=== PATIENT | female | born 1945 | race Caucasian/White ===

== ENCOUNTER 2017-04-15 08:26 | Emergency (ER) | payer MEDICARE, OTHER ==
[~2017-04-15] VITALS: Ht 154.9 cm; Wt 85.5 kg
[~2017-04-15 08:26] MED LIST: ALPR1TAB10 PO; ATEN25TA PO; ATOR40TA PO; ATOR40TA78 PO; BUPR150T6 PO; FLUO20CA19 PO; FLUT9.9S NAS; FURO-92 PO; LEVO125T PO; LEVO175T2 PO; LISI-468 PO; LISI40TA PO; METH-356 PO; OMEP-110 PO
[2017-04-15 08:28] VITALS: BP 146/69
[2017-04-15] MEDS ORDERED: L.E.T SOLUTION TP ONE ×3 (09:29→09:34)
[2017-04-15] MEDS ORDERED: CEFAZOLIN 1,000 MG ONE (09:29)
[2017-04-15] MEDS ORDERED: CEFAZOLIN 1,000 MG IM ONE (09:30)
[2017-04-15] MEDS ORDERED: OMEP20TA62 PO (10:33)
== END 2017-04-15 10:39 | disposition home or self-care (01) ==
LOC: ED 10:30
DX: S80.811A Abrasion, right lower leg, initial encounter (principal); L03.115 Cellulitis of right lower limb; E78.5 Hyperlipidemia, unspecified; E78.00 Pure hypercholesterolemia, unspecified; I10 Essential (primary) hypertension; Z88.2 Allergy status to sulfonamides; Z79.899 Other long term (current) drug therapy; W19.XXXA Unspecified fall, initial encounter; Y93.89 Activity, other specified; Y92.89 Other specified places as the place of occurrence of the external cause; Y99.8 Other external cause status
CPT/HCPCS: 93971; 96372; 99284; J0690

== ENCOUNTER → 2017-11-28 | Outpatient (CLI) | payer MEDICARE, OTHER ==
[~2017-11-28] MED LIST changes: +ASPI-496 PO; +FURO40TA6 PO; +LISI-170 PO; +METO25TA35 PO; +MULT-658 PO; +OMEP20TA62 PO; +POLY17PO5 PO; +PREG75CA PO
[2017-11-28 09:58] LABS: BASOPHILS # (AUTO) 0.03 x10^3/uL (0-0.1); BASOPHILS % (AUTO) 0 % (0-1); EOSINOPHILS # (AUTO) 0.15 x10^3/uL (0-0.4); EOSINOPHILS % (AUTO) 2 % (1-7); LYMPHOCYTES # (AUTO) 2.84 x10^3/uL (1-3.4); LYMPHOCYTES % (AUTO) 32 % (22-44); MD NO; MEAN CORPUSCULAR HEMOGLOBIN 28.4 pg (27.0-34.8); MEAN CORPUSCULAR VOLUME 86.1 fL (80-100); MEAN PLATELET VOLUME 10.7 fL (7.4-10.4); MONOCYTES # (AUTO) 0.99 x10^3/uL (0.2-0.8); MONOCYTES % (AUTO) 11 % (2-9); NEUTROPHILS # (AUTO) 4.95 x10^3/uL (1.8-6.8); NEUTROPHILS % (AUTO) 55 % (42-75); PLATELET COUNT 231 x10^3/uL (130-400); RED BLOOD COUNT 4.67 x10^6/uL (3.82-5.3); RED CELL DISTRIBUTION WIDTH 16.5 % (9.6-15.2)
[2017-11-28 10:07] LABS: ALBUMIN 3.4 g/dL (3.4-5.0); ANION GAP 7 mmol/L (5-15); CALCIUM 9.5 mg/dL (8.5-10.1); CHLORIDE 102 mmol/L (98-107)
[2017-11-28 10:08] LABS: MICROSCOPIC AUTO
[2017-11-28 10:12] LABS: ALANINE AMINOTRANSFERASE 28 U/L (12-78); ALKALINE PHOSPHATASE 98 U/L (45-117); BILIRUBIN,TOTAL 0.5 mg/dL (0.2-1.0); CREATININE 2.31 mg/dL (0.55-1.02); TOTAL PROTEIN 7.6 g/dL (6.4-8.2)
== END | disposition home or self-care (01) ==
LOC: STAR 08:13
PROVIDERS: ATTEND Urology
DX: Z01.818 Encounter for other preprocedural examination (principal); R94.31 Abnormal electrocardiogram [ECG] [EKG]; C67.9 Malignant neoplasm of bladder, unspecified
CPT/HCPCS: 36415; 80053; 81001; 85025; 87086; 93005

== ENCOUNTER 2017-12-11 05:28 | Day surgery (SDC) | payer MEDICARE, OTHER ==
[~2017-12-11] VITALS: Ht 157.5 cm; Wt 92.4 kg
[2017-12-11] MEDS ORDERED: LACTATED RINGERS 1,000 ML IV SCH (06:10)
[2017-12-11 06:11] VITALS: BP 121/55
[2017-12-11] MEDS ORDERED: LIDOCAINE 1%, 2ML SQ PRN (06:30)
[2017-12-11] MEDS ORDERED: LIDOCAINE-MPF 2% ,5ML ONE (07:05)
[2017-12-11] MEDS ORDERED: PROPOFOL 10 MG/ML, 20ML ONE (07:06)
[2017-12-11] MEDS ORDERED: LIDOCAINE GEL 2%, 5ML ONE (07:09)
[2017-12-11] MEDS ORDERED: MITOMYCIN 40 MG, WATER FOR INJECTION,STERILE 20 ML in SYRINGE 1 EA INTVESIC ONE (07:30)
[2017-12-11] MEDS ORDERED: CIPROFLOXACIN 400MG/200ML PMX ONE (07:41)
[2017-12-11] MEDS ORDERED: EPHEDRINE 50 MG/ML, 1ML ONE (07:59)
[2017-12-11] MEDS ORDERED: ONDANSETRON 2MG/ML, 2ML IVPush PRN (08:00)
[2017-12-11] MEDS ORDERED: OXYcodone 5 MG/5 ML ORAL.SOL UDC PO PRN (08:00)
[2017-12-11] MEDS ORDERED: MEPERIDINE/PF 25MG/0.5ML IVPush PRN (08:00)
[2017-12-11] MEDS ORDERED: HYDROcodone/APAP 7.5-325MG/15ML UDC PO PRN (08:00)
[2017-12-11] MEDS ORDERED: FENTANYL PF 100 MCG/2ML IV PRN (08:00)
[2017-12-11] MEDS ORDERED: morphine SULFATE 10 MG/ML, 1ML IV PRN (08:00)
[2017-12-11] MEDS ORDERED: ONDANSETRON 2MG/ML, 2ML ONE (08:04)
[2017-12-11] MEDS ORDERED: DEXAMETHASONE 4 MG/ML, 1ML ONE ×2 (08:04)
[2017-12-11] MEDS ORDERED: METOPROLOL TARTRATE 25 MG TABLET PO SCH (09:00)
[2017-12-11] MEDS ORDERED: PREGABALIN 75 MG CAPSULE PO SCH (09:00)
[2017-12-11] MEDS ORDERED: METHADONE 10 MG TABLET PO SCH (09:00)
[2017-12-11] MEDS ORDERED: FUROSEMIDE 40 MG TABLET PO SCH (09:00)
[2017-12-11] MEDS ORDERED: POLYETHYLENE GLYCOL 17 GM PACKET PO PRN (09:00)
[2017-12-11] MEDS ORDERED: MULTIVITAMIN 1 TABLET PO SCH (09:00)
[2017-12-11] MEDS ORDERED: LISINOPRIL 20 MG TABLET PO SCH (09:00)
[2017-12-11] MEDS ORDERED: ATORVASTATIN 40 MG TABLET PO SCH (21:00)
[2017-12-12] MEDS ORDERED: LEVOTHYROXINE 175 MCG TABLET PO SCH (06:00)
== END 2017-12-11 11:30 ==
LOC: OUT 05:28
PROVIDERS: ATTEND Urology
DX: C67.9 Malignant neoplasm of bladder, unspecified (principal); J44.9 Chronic obstructive pulmonary disease, unspecified; F32.9 Major depressive disorder, single episode, unspecified; I10 Essential (primary) hypertension; E03.9 Hypothyroidism, unspecified; F17.210 Nicotine dependence, cigarettes, uncomplicated; Z79.82 Long term (current) use of aspirin; Z88.1 Allergy status to other antibiotic agents; Z87.39 Personal history of other diseases of the musculoskeletal system and connective tissue
CPT/HCPCS: 52234; 88307; J0744; J1100; J2405; J2704; J3490; J7120; J9280

== ENCOUNTER 2018-03-12 12:12 | Inpatient (IN) | payer MEDICARE ==
[2018-03-10 10:42] LABS: BASOPHILS # (AUTO) 0.03 x10^3/uL (0-0.1); BASOPHILS % (AUTO) 0 % (0-1); EOSINOPHILS % (AUTO) 1 % (1-7); LYMPHOCYTES # (AUTO) 1.88 x10^3/uL (1-3.4); LYMPHOCYTES % (AUTO) 25 % (22-44); MD NO; MEAN CORPUSCULAR HEMOGLOBIN 27.8 pg (27.0-34.8); MEAN CORPUSCULAR HGB CONC 32.9 g/dL (32.4-35.8); MEAN CORPUSCULAR VOLUME 84.4 fL (80-100); MEAN PLATELET VOLUME 10.7 fL (7.4-10.4); MONOCYTES # (AUTO) 0.64 x10^3/uL (0.2-0.8); MONOCYTES % (AUTO) 8 % (2-9); NEUTROPHILS % (AUTO) 65 % (42-75); PLATELET COUNT 247 x10^3/uL (130-400); RED BLOOD COUNT 4.56 x10^6/uL (3.82-5.3); RED CELL DISTRIBUTION WIDTH 17.1 % (9.6-15.2)
[2018-03-10 10:52] LABS: MICROSCOPIC INDICATED
[2018-03-10 10:55] LABS: ALANINE AMINOTRANSFERASE 25 U/L (12-78); ALBUMIN 3.7 g/dL (3.4-5.0); ANION GAP 6 mmol/L (5-15); CALCIUM 9.3 mg/dL (8.5-10.1); CHLORIDE 98 mmol/L (98-107)
[2018-03-10 10:57] LABS: ALKALINE PHOSPHATASE 110 U/L (45-117); BILIRUBIN,TOTAL 0.4 mg/dL (0.2-1.0); TOTAL PROTEIN 7.9 g/dL (6.4-8.2)
[~2018-03-12] VITALS: Ht 157.5 cm; Wt 98.7 kg
[~2018-03-12 12:12] MED LIST changes: +METO5TAB5 PO
[2018-03-12] MEDS ORDERED: SODIUM CHLORIDE 0.9% 1,000 ML IV SCH (13:06)
[2018-03-12 13:12] VITALS: BP 108/49
[2018-03-12] MEDS ORDERED: ONDANSETRON ODT 8 MG PO ONE (13:30)
[2018-03-12] MEDS ORDERED: DIAZEPAM 5 MG TABLET PO ONE (13:30)
[2018-03-12] MEDS ORDERED: ACETAMINOPHEN 500 MG TABLET PO ONE (13:30)
[2018-03-12] MEDS ORDERED: GABAPENTIN 300 MG CAPSULE PO ONE (13:30)
[2018-03-12] MEDS ORDERED: MIDAZOLAM 1 MG/ML, 2ML ONE (14:46)
[2018-03-12] MEDS ORDERED: FENTANYL PF 100 MCG/2ML ONE (14:46)
[2018-03-12] MEDS ORDERED: DEXAMETHASONE 4 MG/ML, 5ML ONE (16:56)
[2018-03-12] MEDS ORDERED: PROPOFOL 10 MG/ML, 20ML ONE (16:56)
[2018-03-12] MEDS ORDERED: GLYCOPYRROLATE 0.2MG/1ML, 5ML ONE (16:56)
[2018-03-12] MEDS ORDERED: LIDOCAINE-MPF 2% ,5ML ONE (16:56)
[2018-03-12] MEDS ORDERED: CIPROFLOXACIN/PMX 400MG/200ML 200 ML IVPB ONE (17:57)
[2018-03-12] MEDS ORDERED: OPIUM/BELLADONNA SUPP.RECT 16.2-30 MG PR PRN (18:00)
[2018-03-12] MEDS ORDERED: POLYETHYLENE GLYCOL 17 GM PACKET PO PRN (18:00)
[2018-03-12] MEDS ORDERED: METHADONE 10 MG TABLET PO SCH (18:00)
[2018-03-12] MEDS ORDERED: HYDROcodone/APAP 5/325 TABLET PO PRN (18:00)
[2018-03-12] MEDS ORDERED: OXYcodone 5 MG/5 ML ORAL.SOL UDC PO PRN (18:30)
[2018-03-12] MEDS ORDERED: MORPHINE SULFATE 4 MG/ML, 1ML IVPush PRN (18:30)
[2018-03-12] MEDS ORDERED: FENTANYL PF 100 MCG/2ML IV PRN (18:30)
[2018-03-12] MEDS ORDERED: PROMETHAZINE 25 MG/ML, 1ML IV PRN (18:30)
[2018-03-12] MEDS ORDERED: EPHEDRINE 50 MG/ML, 1ML IM PRN (18:30)
[2018-03-12] MEDS: D5%-LACTATED RINGERS 1,000 ML IV SCH (20:34)
[2018-03-12] MEDS: METHADONE 10 MG TABLET PO SCH (20:45)
[2018-03-12] MEDS: PREGABALIN 75 MG CAPSULE PO SCH (20:45)
[2018-03-12] MEDS: ATORVASTATIN 40 MG TABLET PO SCH (20:45)
[2018-03-12] MEDS: FUROSEMIDE 40 MG TABLET PO SCH (20:46)
[2018-03-12 21:12] VITALS: BP 120/52
[2018-03-12 23:40] VITALS: BP 97/44
[2018-03-13] MEDS: D5%-LACTATED RINGERS 1,000 ML IV SCH ×3 (00:56→21:52)
[2018-03-13 03:25] VITALS: BP 99/54
[2018-03-13] MEDS: CIPROFLOXACIN/PMX 400MG/200ML 200 ML IVPB SCH ×2 (05:18→18:41)
[2018-03-13] MEDS ORDERED: LEVOTHYROXINE 100 MCG TABLET ONE (05:51)
[2018-03-13] MEDS ORDERED: LEVOTHYROXINE 75 MCG TABLET ONE (05:51)
[2018-03-13] MEDS: METHADONE 10 MG TABLET PO SCH ×5 (05:54→21:00)
[2018-03-13] MEDS: LEVOTHYROXINE 175 MCG TABLET PO SCH (05:54)
[2018-03-13] MEDS: FUROSEMIDE 40 MG TABLET PO SCH ×2 (07:57→21:07)
[2018-03-13] MEDS: PREGABALIN 75 MG CAPSULE PO SCH ×3 (07:57→21:07)
[2018-03-13] MEDS: LISINOPRIL 20 MG TABLET PO SCH (07:57)
[2018-03-13] MEDS: METOPROLOL SUCCINATE 25 MG TAB.ER.24H PO SCH (07:57)
[2018-03-13] MEDS: METOLAZONE 5 MG TABLET PO SCH (07:57)
[2018-03-13] MEDS: MULTIVITAMIN 1 TABLET PO SCH (07:57)
[2018-03-13 08:16] VITALS: BP 107/56
[2018-03-13 12:55] VITALS: BP 104/46
[2018-03-13 19:21] VITALS: BP 99/45
[2018-03-13] MEDS: ATORVASTATIN 40 MG TABLET PO SCH (21:07)
[2018-03-14 02:25] VITALS: BP 107/50
[2018-03-14] MEDS: CIPROFLOXACIN/PMX 400MG/200ML 200 ML IVPB SCH ×2 (05:20→17:04)
[2018-03-14] MEDS ORDERED: LEVOTHYROXINE 75 MCG TABLET ONE (05:49)
[2018-03-14] MEDS ORDERED: LEVOTHYROXINE 100 MCG TABLET ONE (05:49)
[2018-03-14] MEDS: METHADONE 10 MG TABLET PO SCH ×5 (05:50→20:47)
[2018-03-14] MEDS: LEVOTHYROXINE 175 MCG TABLET PO SCH (05:50)
[2018-03-14 08:34] VITALS: BP 107/39
[2018-03-14] MEDS: METOPROLOL SUCCINATE 25 MG TAB.ER.24H PO SCH (09:00)
[2018-03-14] MEDS: METOLAZONE 5 MG TABLET PO SCH (09:00)
[2018-03-14] MEDS: LISINOPRIL 20 MG TABLET PO SCH (09:00)
[2018-03-14] MEDS: MULTIVITAMIN 1 TABLET PO SCH (09:25)
[2018-03-14] MEDS: PREGABALIN 75 MG CAPSULE PO SCH ×3 (09:25→20:48)
[2018-03-14] MEDS: FUROSEMIDE 40 MG TABLET PO SCH ×2 (09:25→20:48)
[2018-03-14] MEDS: D5%-LACTATED RINGERS 1,000 ML IV SCH ×2 (12:49→21:48)
[2018-03-14 14:59] VITALS: BP 91/50
[2018-03-14 19:31] VITALS: BP 95/45
[2018-03-14] MEDS: ATORVASTATIN 40 MG TABLET PO SCH (20:48)
[2018-03-15 02:23] VITALS: BP 102/50
[2018-03-15] MEDS: CIPROFLOXACIN/PMX 400MG/200ML 200 ML IVPB SCH (05:12)
[2018-03-15 05:18] LABS: BASOPHILS # (AUTO) 0.03 x10^3/uL (0-0.1); BASOPHILS % (AUTO) 0 % (0-1); EOSINOPHILS # (AUTO) 0.21 x10^3/uL (0-0.4); EOSINOPHILS % (AUTO) 3 % (1-7); LYMPHOCYTES # (AUTO) 2.16 x10^3/uL (1-3.4); LYMPHOCYTES % (AUTO) 26 % (22-44); MD NO; MEAN CORPUSCULAR HEMOGLOBIN 27.5 pg (27.0-34.8); MEAN CORPUSCULAR HGB CONC 32.5 g/dL (32.4-35.8); MEAN CORPUSCULAR VOLUME 84.5 fL (80-100); MEAN PLATELET VOLUME 10.5 fL (7.4-10.4); MONOCYTES % (AUTO) 11 % (2-9); NEUTROPHILS # (AUTO) 4.88 x10^3/uL (1.8-6.8); NEUTROPHILS % (AUTO) 60 % (42-75); PLATELET COUNT 241 x10^3/uL (130-400); RED BLOOD COUNT 4.36 x10^6/uL (3.82-5.3); RED CELL DISTRIBUTION WIDTH 17.8 % (9.6-15.2)
[2018-03-15] MEDS ORDERED: LEVOTHYROXINE 75 MCG TABLET ONE (05:50)
[2018-03-15] MEDS ORDERED: LEVOTHYROXINE 100 MCG TABLET ONE (05:50)
[2018-03-15] MEDS: LEVOTHYROXINE 175 MCG TABLET PO SCH (05:52)
[2018-03-15] MEDS: METHADONE 10 MG TABLET PO SCH ×2 (05:53→11:09)
[2018-03-15 08:00] VITALS: BP 93/51
[2018-03-15] MEDS: METOPROLOL SUCCINATE 25 MG TAB.ER.24H PO SCH (09:00)
[2018-03-15] MEDS: D5%-LACTATED RINGERS 1,000 ML IV SCH (09:00)
[2018-03-15] MEDS: METOLAZONE 5 MG TABLET PO SCH (09:00)
[2018-03-15] MEDS: LISINOPRIL 20 MG TABLET PO SCH (09:00)
[2018-03-15] MEDS: MULTIVITAMIN 1 TABLET PO SCH (11:09)
[2018-03-15] MEDS: FUROSEMIDE 40 MG TABLET PO SCH (11:09)
[2018-03-15] MEDS: PREGABALIN 75 MG CAPSULE PO SCH (11:09)
[2018-03-15] MEDS ORDERED: OXYB10TA PO (13:42)
[2018-03-15] MEDS ORDERED: DOCU-131 PO (13:42)
== END 2018-03-15 14:00 | disposition home or self-care (01) | DRG 670 ==
LOC: OUT 12:12 → OBSVTOIN 17:56 → ORIP 17:56 → 4NOR 19:22
PROVIDERS: ADMIT Urology; ATTEND Urology
PROC: 0TBB8ZZ Excision of Bladder, Via Natural or Artificial Opening Endoscopic (ICD-10-PCS; principal; 2018-03-12 14:30)
DX: C67.9 Malignant neoplasm of bladder, unspecified (principal); R31.0 Gross hematuria; E03.9 Hypothyroidism, unspecified; I10 Essential (primary) hypertension; Z88.2 Allergy status to sulfonamides
CPT/HCPCS: 36415; 80053; 81001; 85025; 87086; 88307; 93005; J0744; J1100; J2250; J2704; J3010; J3490; Q0162; J7030; J7121

== ENCOUNTER → 2018-04-09 | Outpatient (CLI) | payer MEDICARE ==
[~2018-04-09] MED LIST changes: +DOCU-131 PO; +OXYB10TA PO
== END | disposition home or self-care (01) ==
LOC: PETCFH 14:05
PROVIDERS: ATTEND Specialist
DX: Z02.9 Encounter for administrative examinations, unspecified (principal)

== ENCOUNTER → 2018-04-10 | Outpatient (CLI) | payer MEDICARE | END | disposition home or self-care (01) | LOC: PETCFH 12:29 | PROVIDERS: ATTEND Specialist | DX: C67.9 Malignant neoplasm of bladder, unspecified (principal) | CPT/HCPCS: 78815; A9552 ==

== ENCOUNTER → 2018-08-19 | Outpatient (CLI) | payer MEDICARE ==
[2018-08-19 10:04] LABS: BASOPHILS # (AUTO) 0.04 x10^3/uL (0-0.1); BASOPHILS % (AUTO) 1 % (0-1); EOSINOPHILS # (AUTO) 0.14 x10^3/uL (0-0.4); EOSINOPHILS % (AUTO) 2 % (1-7); LYMPHOCYTES # (AUTO) 1.82 x10^3/uL (1-3.4); LYMPHOCYTES % (AUTO) 28 % (22-44); MD NO; MEAN CORPUSCULAR HEMOGLOBIN 25.8 pg (27.0-34.8); MEAN CORPUSCULAR HGB CONC 32.3 g/dL (32.4-35.8); MEAN CORPUSCULAR VOLUME 79.9 fL (80-100); MEAN PLATELET VOLUME 9.9 fL (7.4-10.4); MONOCYTES # (AUTO) 0.72 x10^3/uL (0.2-0.8); MONOCYTES % (AUTO) 11 % (2-9); NEUTROPHILS # (AUTO) 3.78 x10^3/uL (1.8-6.8); NEUTROPHILS % (AUTO) 58 % (42-75); PLATELET COUNT 238 x10^3/uL (130-400); RED BLOOD COUNT 4.93 x10^6/uL (3.82-5.3); RED CELL DISTRIBUTION WIDTH 20.2 % (9.6-15.2)
[2018-08-19 10:18] LABS: ALANINE AMINOTRANSFERASE 19 U/L (12-78); ALBUMIN 3.4 g/dL (3.4-5.0); CALCIUM 8.8 mg/dL (8.5-10.1); CHLORIDE 100 mmol/L (98-107); CREATININE 1.24 mg/dL (0.55-1.02)
[2018-08-19 10:20] LABS: ALKALINE PHOSPHATASE 123 U/L (45-117); BILIRUBIN,TOTAL 0.4 mg/dL (0.2-1.0); TOTAL PROTEIN 7.4 g/dL (6.4-8.2)
[2018-08-19 10:25] LABS: ANION GAP 5 mmol/L (5-15)
[2018-08-19 10:27] LABS: MICROSCOPIC AUTO
== END | disposition home or self-care (01) ==
LOC: STAR 08:43
PROVIDERS: ATTEND Urology
DX: Z01.818 Encounter for other preprocedural examination (principal); C67.9 Malignant neoplasm of bladder, unspecified; I10 Essential (primary) hypertension
CPT/HCPCS: 36415; 71045; 80053; 81001; 85025; 87086; 93005

== ENCOUNTER 2018-08-27 08:16 | Inpatient (IN) | payer MEDICARE ==
[2018-08-19 13:13] VITALS: BP 132/64
[~2018-08-27] VITALS: Ht 157.5 cm; Wt 104.1 kg
[2018-08-27] MEDS ORDERED: LACTATED RINGERS 1,000 ML IV SCH (08:54)
[2018-08-27] MEDS ORDERED: GABAPENTIN 300 MG CAPSULE PO ONE (09:00)
[2018-08-27] MEDS ORDERED: ACETAMINOPHEN 500 MG TABLET PO ONE (09:00)
[2018-08-27] MEDS ORDERED: LIDOCAINE-MPF 1%, 2ML INFIL ONE (09:00)
[2018-08-27] MEDS ORDERED: POLY17PO5 PO (09:24)
[2018-08-27] MEDS ORDERED: ASPI-496 PO (09:24)
[2018-08-27] MEDS ORDERED: BUME1TAB21 PO (09:24)
[2018-08-27] MEDS ORDERED: FLUO20CA19 PO (09:24)
[2018-08-27] MEDS ORDERED: POTASSIUM 20 MEQ PO (09:24)
[2018-08-27] MEDS ORDERED: MONT10TA6 PO (09:24)
[2018-08-27] MEDS ORDERED: DULO60CA7 PO (09:24)
[2018-08-27] MEDS ORDERED: FENTANYL PF 100 MCG/2ML ONE (10:12)
[2018-08-27] MEDS ORDERED: ONDANSETRON 2MG/ML, 2ML ONE (10:28)
[2018-08-27] MEDS ORDERED: SUCCINYLCHOLINE 20 MG/ML, 10ML ONE (10:28)
[2018-08-27] MEDS ORDERED: ROCURONIUM 10 MG/ML,10ML ONE (10:28)
[2018-08-27] MEDS ORDERED: PROPOFOL 10 MG/ML, 20ML ONE (10:28)
[2018-08-27] MEDS ORDERED: DEXAMETHASONE 4 MG/ML, 1ML ONE (10:28)
[2018-08-27] MEDS ORDERED: PROCHLORPERAZINE 5 MG/ML, 2ML IV PRN (11:00)
[2018-08-27] MEDS ORDERED: MEPERIDINE/PF 25MG/0.5ML IVPush PRN (11:00)
[2018-08-27] MEDS ORDERED: HYDROmorphone 1 MG/ML, 1ML IV PRN (11:00)
[2018-08-27] MEDS ORDERED: DIPHENHYDRAMINE 50 MG/ML, 1ML IVPush PRN (11:00)
[2018-08-27] MEDS ORDERED: OXYcodone 5 MG/5 ML ORAL.SOL UDC PO PRN (11:00)
[2018-08-27] MEDS ORDERED: FENTANYL PF 100 MCG/2ML IV PRN (11:00)
[2018-08-27] MEDS ORDERED: LORazepam 2 MG/ML, 1ML IVPush PRN (11:00)
[2018-08-27] MEDS ORDERED: TEMAZEPAM 15 MG CAPSULE PO PRN (11:30)
[2018-08-27] MEDS ORDERED: HYDROcodone/APAP 5/325 TABLET PO PRN (11:30)
[2018-08-27] MEDS ORDERED: OPIUM/BELLADONNA SUPP.RECT 16.2-30 MG PR PRN (11:30)
[2018-08-27] MEDS ORDERED: morphine SULFATE 10 MG/ML, 1ML IV PRN (11:30)
[2018-08-27] MEDS ORDERED: ONDANSETRON 2MG/ML, 2ML IV PRN (11:30)
[2018-08-27] MEDS ORDERED: FLUTICASONE NASAL SPRAY 16GM NAS PRN (13:00)
[2018-08-27] MEDS ORDERED: POLYETHYLENE GLYCOL 17 GM PACKET PO PRN (13:00)
[2018-08-27] MEDS ORDERED: METHADONE 10 MG TABLET PO SCH (14:00)
[2018-08-27] MEDS: METHADONE 10 MG TABLET PO PRN ×3 (14:54→21:35)
[2018-08-27] MEDS: D5%-LACTATED RINGERS 1,000 ML IV SCH (14:56)
[2018-08-27] MEDS: CIPROFLOXACIN/PMX 400MG/200ML 200 ML IVPB SCH (14:56)
[2018-08-27] MEDS: PREGABALIN 75 MG CAPSULE PO SCH ×2 (16:00→21:35)
[2018-08-27 18:49] VITALS: BP 108/62
[2018-08-27 19:30] VITALS: BP 107/67
[2018-08-27] MEDS ORDERED: ATORVASTATIN 40 MG TABLET PO SCH (21:00)
[2018-08-27] MEDS ORDERED: MONTELUKAST 10 MG TABLET PO SCH (21:00)
[2018-08-27] MEDS: BUMETANIDE 1 MG TABLET PO SCH (21:34)
[2018-08-28 00:32] VITALS: BP 104/64
[2018-08-28] MEDS: D5%-LACTATED RINGERS 1,000 ML IV SCH (00:46)
[2018-08-28] MEDS: CIPROFLOXACIN/PMX 400MG/200ML 200 ML IVPB SCH ×2 (03:02→15:00)
[2018-08-28] MEDS ORDERED: LEVOTHYROXINE 175 MCG TABLET PO SCH (06:00)
[2018-08-28 07:02] VITALS: BP 97/62
[2018-08-28] MEDS ORDERED: METOLAZONE 5 MG TABLET PO SCH (07:30)
[2018-08-28] MEDS: BUMETANIDE 1 MG TABLET PO SCH (08:12)
[2018-08-28] MEDS: PREGABALIN 75 MG CAPSULE PO SCH (08:12)
[2018-08-28] MEDS: METHADONE 10 MG TABLET PO PRN ×3 (08:12→12:32)
[2018-08-28] MEDS ORDERED: POTASSIUM CHLORIDE 20 MEQ TAB.ER.PRT PO SCH (09:00)
[2018-08-28] MEDS ORDERED: DULOXETINE 30 MG CAPSULE.DR PO SCH (09:00)
[2018-08-28] MEDS ORDERED: FLUOXETINE HCL 20 MG CAPSULE PO SCH (09:00)
== END 2018-08-28 15:15 | disposition home or self-care (01) | DRG 670 ==
LOC: OUT 08:16 → ORIP 11:20 → 4NOR 12:22 → DCLOUNGE 08-28 15:00
PROVIDERS: ADMIT Urology; ATTEND Urology
PROC: 0TBB8ZZ Excision of Bladder, Via Natural or Artificial Opening Endoscopic (ICD-10-PCS; principal; 2018-08-27 10:30)
DX: C67.9 Malignant neoplasm of bladder, unspecified (principal); J44.9 Chronic obstructive pulmonary disease, unspecified; M19.90 Unspecified osteoarthritis, unspecified site; F32.9 Major depressive disorder, single episode, unspecified; E03.9 Hypothyroidism, unspecified; I12.9 Hypertensive chronic kidney disease with stage 1 through stage 4 chronic kidney disease, or unspecified chronic kidney disease; N18.9 Chronic kidney disease, unspecified; F17.210 Nicotine dependence, cigarettes, uncomplicated; G89.29 Other chronic pain; M54.9 Dorsalgia, unspecified; E78.49 Other hyperlipidemia; Z80.51 Family history of malignant neoplasm of kidney; Z88.2 Allergy status to sulfonamides; Z80.8 Family history of malignant neoplasm of other organs or systems; Z80.3 Family history of malignant neoplasm of breast; Z90.710 Acquired absence of both cervix and uterus; Z90.49 Acquired absence of other specified parts of digestive tract; Z98.1 Arthrodesis status; Z85.51 Personal history of malignant neoplasm of bladder
CPT/HCPCS: 88307; G0378; J0744; J1100; J2405; J2704; J3010; J0330; J7120; J7121

== ENCOUNTER → 2018-12-01 | Outpatient (CLI) | payer MEDICARE ==
[~2018-12-01] MED LIST changes: +BUME1TAB21 PO; +DULO60CA7 PO; +FURO-93 PO; +IBUP-1222 PO; -METH-356 PO; +METH10TA2 PO; +MONT10TA6 PO; +POTASSIUM 20 MEQ PO
[2018-12-01 09:54] LABS: MICROSCOPIC AUTO
[2018-12-01 09:58] LABS: BASOPHILS # (AUTO) 0.03 x10^3/uL (0-0.1); BASOPHILS % (AUTO) 0 % (0-1); EOSINOPHILS # (AUTO) 0.26 x10^3/uL (0-0.4); EOSINOPHILS % (AUTO) 4 % (1-7); LYMPHOCYTES # (AUTO) 1.41 x10^3/uL (1-3.4); LYMPHOCYTES % (AUTO) 21 % (22-44); MD NO; MEAN CORPUSCULAR HEMOGLOBIN 26.8 pg (27.0-34.8); MEAN CORPUSCULAR HGB CONC 32.1 g/dL (32.4-35.8); MEAN CORPUSCULAR VOLUME 83.3 fL (80-100); MEAN PLATELET VOLUME 9.4 fL (7.4-10.4); MONOCYTES # (AUTO) 0.67 x10^3/uL (0.2-0.8); MONOCYTES % (AUTO) 10 % (2-9); NEUTROPHILS # (AUTO) 4.26 x10^3/uL (1.8-6.8); NEUTROPHILS % (AUTO) 64 % (42-75); PLATELET COUNT 250 x10^3/uL (130-400); RED BLOOD COUNT 4.63 x10^6/uL (3.82-5.3); RED CELL DISTRIBUTION WIDTH 19.8 % (9.6-15.2)
[2018-12-01 10:02] LABS: ALBUMIN 3.1 g/dL (3.4-5.0); ANION GAP 5 mmol/L (5-15); CALCIUM 9.4 mg/dL (8.5-10.1); CHLORIDE 104 mmol/L (98-107)
[2018-12-01 10:04] LABS: ALANINE AMINOTRANSFERASE 16 U/L (12-78); ALKALINE PHOSPHATASE 114 U/L (45-117); BILIRUBIN,TOTAL 0.4 mg/dL (0.2-1.0); CREATININE 1.69 mg/dL (0.55-1.02); TOTAL PROTEIN 7.2 g/dL (6.4-8.2)
== END | disposition home or self-care (01) ==
LOC: STAR 08:19
PROVIDERS: ATTEND Urology
DX: Z01.818 Encounter for other preprocedural examination (principal); I25.2 Old myocardial infarction; C67.9 Malignant neoplasm of bladder, unspecified
CPT/HCPCS: 36415; 80053; 81001; 85025; 87086; 93005

== ENCOUNTER 2018-12-15 04:14 | Emergency (ER) | payer MEDICARE ==
[~2018-12-15] VITALS: Ht 157.5 cm; Wt 95.0 kg
[2018-12-15 04:15] VITALS: BP 159/104
--- NOTE | 2018-12-15 04:40 | NUR ---
DEGROOT CATHETER REMOVED, 30ML FLUIDS REMOVED FROM BALLOON.
== END 2018-12-15 04:56 | disposition home or self-care (01) ==
LOC: ED 04:41
DX: T83.091A Other mechanical complication of indwelling urethral catheter, initial encounter (principal); E78.5 Hyperlipidemia, unspecified; I10 Essential (primary) hypertension; E78.00 Pure hypercholesterolemia, unspecified
CPT/HCPCS: 99281

== ENCOUNTER 2019-01-16 14:16 | Emergency (ER) | payer MEDICARE ==
[~2019-01-16] VITALS: Ht 157.5 cm; Wt 99.0 kg
[2019-01-16 15:10] LABS: BASOPHILS # (AUTO) 0.08 x10^3/uL (0-0.1); BASOPHILS % (AUTO) 1 % (0-1); EOSINOPHILS # (AUTO) 0.18 x10^3/uL (0-0.4); EOSINOPHILS % (AUTO) 2 % (1-7); LYMPHOCYTES # (AUTO) 1.81 x10^3/uL (1-3.4); LYMPHOCYTES % (AUTO) 19 % (22-44); MD NO; MEAN CORPUSCULAR HEMOGLOBIN 26.9 pg (27.0-34.8); MEAN CORPUSCULAR HGB CONC 32.4 g/dL (32.4-35.8); MEAN CORPUSCULAR VOLUME 83.1 fL (80-100); MEAN PLATELET VOLUME 8.2 fL (7.4-10.4); MONOCYTES # (AUTO) 0.68 x10^3/uL (0.2-0.8); MONOCYTES % (AUTO) 7 % (2-9); NEUTROPHILS # (AUTO) 6.92 x10^3/uL (1.8-6.8); NEUTROPHILS % (AUTO) 72 % (42-75); PLATELET COUNT 326 x10^3/uL (130-400); RED BLOOD COUNT 5.12 x10^6/uL (3.82-5.3); RED CELL DISTRIBUTION WIDTH 19.1 % (9.6-15.2)
[2019-01-16 15:22] LABS: ALBUMIN 3.7 g/dL (3.4-5.0); ANION GAP 5 mmol/L (5-15); CALCIUM 9.8 mg/dL (8.5-10.1); CHLORIDE 105 mmol/L (98-107); CREATININE 1.35 mg/dL (0.55-1.02)
--- NOTE | 2019-01-16 15:26 | NUR ---
PT AMBULATED TO ROOM WITH WALKER AND STEADY GAIT. PT STATED THAT SHE HAS ONLY URINATED TWICE TODAY. REPORT DRIBBLING AND BLOOD IN URINE. HX OF BLADDER CANCER. PT IS ALERT, ORIENTED, WITH NAD. PT IS CONNECTED TO THE MONITOR. CALL LIGHT WITHIN REACH.
--- NOTE | 2019-01-16 15:43 | NUR ---
PER MD PLACE DEGROOT. DEGROOT PLACED. CLOUDY URINE WITH BLOOD IN IT DRAINED FROM BLADDER. 1000ML EMPTIED FROM BLADDER. PT IS APPRECIATIVE.
[2019-01-16 16:00] LABS: CULTURE INDICATED? YES; MICROSCOPIC INDICATED
[2019-01-16 16:26] VITALS: BP 108/42
--- NOTE | 2019-01-16 16:26 | NUR ---
PT IS RESTING IN BED WITH EYES CLOSED, RESPIRATIONS EQUAL AND NON LABORED. NAD. PT IS CONNECTED TO THE MONITOR. CALL LIGHT WITHIN REACH.
--- NOTE | 2019-01-16 16:39 | NUR ---
A total of about 1400 ml of urine emptied from the pts soliz.
--- NOTE | 2019-01-16 17:28 | NUR ---
Patient given discharge instructions and they have confirmed that they understand the instructions. Patient ambulatory with walker and steady gait, with .
== END 2019-01-16 17:30 | disposition home or self-care (01) ==
LOC: ED 17:26
DX: N30.01 Acute cystitis with hematuria (principal); I10 Essential (primary) hypertension; E78.00 Pure hypercholesterolemia, unspecified; E78.5 Hyperlipidemia, unspecified; E07.9 Disorder of thyroid, unspecified; N28.9 Disorder of kidney and ureter, unspecified
CPT/HCPCS: 36415; 51702; 80048; 81001; 82040; 85025; 87086; 99284

== ENCOUNTER 2019-03-06 08:29 | Emergency (ER) | payer MEDICARE ==
[~2019-03-06] VITALS: Ht 157.5 cm; Wt 92.0 kg
[~2019-03-06 08:29] MED LIST changes: +ONDA4TAB13 PO
[2019-03-06] MEDS ORDERED: HYDROmorphone 2 MG/ML, 1ML IVPush PRN (09:30)
--- NOTE | 2019-03-06 09:32 | NUR ---
"I'M HAVING SOME LEFT GROIN PAIN. I DON'T KNOW IF IT'S FROM MY CATHETER. IT STARTED AT 0730 THIS MORNING." HX BLADDER CA. 2TWO CAPPED NEPHROSTOMY TUBES IN PLACE WELL DEGROOT DRAINING BLOODY URINE. VITALS STABLE PIV STARTED W/ ULTRASOUND-LABS SENT INCLUDING A SET OF BLOOD CULTURE SAMPLE OF BLOODY URINE FROM URIMETER SENT WELL PROVIDER TO BEDSIDE TO EXPLAIN POC
[2019-03-06] MEDS ORDERED: LISI-420 PO (09:37)
[2019-03-06] MEDS ORDERED: METH10TA3 PO (09:37)
--- NOTE | 2019-03-06 09:38 | NUR ---
brenda thompson completed on methadone 10mg 5 times a day-last dose 8pm 03/05/19 reports she has a lisinopril prescription but was told to stop taking a few months ago Also has not taken any of her medicines today
--- NOTE | 2019-03-06 09:56 | NUR ---
to ct scan
[2019-03-06 10:02] LABS: BASOPHILS # (AUTO) 0.02 x10^3/uL (0-0.1); BASOPHILS % (AUTO) 0 % (0-1); EOSINOPHILS # (AUTO) 0.15 x10^3/uL (0-0.4); EOSINOPHILS % (AUTO) 3 % (1-7); LYMPHOCYTES # (AUTO) 0.92 x10^3/uL (1-3.4); LYMPHOCYTES % (AUTO) 17 % (22-44); MD NO; MEAN CORPUSCULAR HEMOGLOBIN 26.6 pg (27.0-34.8); MEAN CORPUSCULAR HGB CONC 32.5 g/dL (32.4-35.8); MEAN CORPUSCULAR VOLUME 81.9 fL (80-100); MEAN PLATELET VOLUME 9.5 fL (7.4-10.4); MONOCYTES # (AUTO) 0.47 x10^3/uL (0.2-0.8); MONOCYTES % (AUTO) 8 % (2-9); NEUTROPHILS # (AUTO) 4.02 x10^3/uL (1.8-6.8); NEUTROPHILS % (AUTO) 72 % (42-75); PLATELET COUNT 235 x10^3/uL (130-400); RED BLOOD COUNT 4.11 x10^6/uL (3.82-5.3); RED CELL DISTRIBUTION WIDTH 19.4 % (9.6-15.2)
[2019-03-06 10:13] LABS: ANION GAP 4 mmol/L (5-15); CALCIUM 8.9 mg/dL (8.5-10.1); CHLORIDE 111 mmol/L (98-107)
[2019-03-06 10:14] LABS: CREATININE 1.28 mg/dL (0.55-1.02)
[2019-03-06] MEDS ORDERED: HYDROmorphone 2 MG/ML, 1ML ONE (10:14)
--- NOTE | 2019-03-06 10:19 | NUR ---
medicated per emar for continued right groin/flank pain rated at 8/10. vitals updated call avendaño in hand/side rails up at bedside
[2019-03-06 10:21] LABS: MICROSCOPIC INDICATED
[2019-03-06 10:27] LABS: CULTURE INDICATED? YES
--- NOTE | 2019-03-06 10:27 | NUR ---
reports pain already improved to 0/10 placed on 2l d/t narcotic admin
[2019-03-06] MEDS ORDERED: OPIUM/BELLADONNA SUPP.RECT 16.2-30 MG PR ONE (10:41)
[2019-03-06] MEDS ORDERED: SODIUM CHLORIDE FLUSH 10ML SYR IVF ONE (11:00)
--- NOTE | 2019-03-06 12:20 | NUR ---
medicated per emar (narcotic suppository) educated on expected effects and side effects
--- NOTE | 2019-03-06 12:54 | NUR ---
AFTER A PERIOD OF ASSESSMENT POST NARCOTIC SUPPOSITORY ADMIN-PATIENT TOLERATING EDUCATED ON SXS TO WATCH FOR WELL WHAT TO RETURN TO ER FOR (UNCONTROLLED PAIN/URINARY RETENTION/FEVER). OTHERWISE PATIENT TO F/U WITH UROLOGIST ON SATURDAY
[2019-03-06 12:56] VITALS: BP 142/85
== END 2019-03-06 12:58 | disposition home or self-care (01) ==
LOC: ED 09:00
DX: R10.31 Right lower quadrant pain (principal); I10 Essential (primary) hypertension; E78.00 Pure hypercholesterolemia, unspecified; E78.5 Hyperlipidemia, unspecified; F32.9 Major depressive disorder, single episode, unspecified; E07.9 Disorder of thyroid, unspecified
CPT/HCPCS: 36415; 74176; 80048; 81001; 82040; 85025; 87040; 87086; 96374; 99284; J1170

== ENCOUNTER 2019-04-28 10:20 | Inpatient (IN) | payer MEDICARE ==
[~2019-04-28] VITALS: Ht 165.1 cm; Wt 86.1 kg
[~2019-04-28 10:20] MED LIST changes: +LISI-420 PO; +METH10TA3 PO
[2019-04-28] MEDS ORDERED: SODIUM CHLORIDE FLUSH 10ML SYR IVF ONE (11:30)
--- NOTE | 2019-04-28 11:41 | NUR ---
JERKING AND TWITCHING TYPE MOVEMENTS FOR APPROXIMATELY A WEEK. FELL TWICE 4 DAYS AGO. BRUSING OUTSIDE OF RIGHT EYE AND LEFT ARM
--- NOTE | 2019-04-28 11:41 | NUR ---
PT A&OX4 BUT CONFUSED. STATES SHE HAS SHOWN SIGNS OF CONFUSION FOR APPROXIMATELY A WEEK. [facility]
[2019-04-28 12:24] LABS: BASOPHILS # (AUTO) 0.04 x10^3/uL (0-0.1); BASOPHILS % (AUTO) 1 % (0-1); EOSINOPHILS # (AUTO) 0.04 x10^3/uL (0-0.4); EOSINOPHILS % (AUTO) 1 % (1-7); LYMPHOCYTES # (AUTO) 0.89 x10^3/uL (1-3.4); LYMPHOCYTES % (AUTO) 14 % (22-44); MD NO; MEAN CORPUSCULAR HEMOGLOBIN 25.2 pg (27.0-34.8); MEAN CORPUSCULAR HGB CONC 31.5 g/dL (32.4-35.8); MEAN CORPUSCULAR VOLUME 79.8 fL (80-100); MEAN PLATELET VOLUME 8.7 fL (7.4-10.4); MONOCYTES # (AUTO) 0.55 x10^3/uL (0.2-0.8); MONOCYTES % (AUTO) 9 % (2-9); NEUTROPHILS # (AUTO) 4.96 x10^3/uL (1.8-6.8); NEUTROPHILS % (AUTO) 77 % (42-75); PLATELET COUNT 256 x10^3/uL (130-400); RED BLOOD COUNT 3.96 x10^6/uL (3.82-5.3); RED CELL DISTRIBUTION WIDTH 19.3 % (9.6-15.2)
[2019-04-28] MEDS ORDERED: LORazepam 2 MG/ML, 1ML IVPush ONE (12:30)
[2019-04-28 12:35] LABS: ALANINE AMINOTRANSFERASE 15 U/L (12-78); ALBUMIN 2.9 g/dL (3.4-5.0); ANION GAP 11 mmol/L (5-15); CHLORIDE 110 mmol/L (98-107)
[2019-04-28 12:37] LABS: ALKALINE PHOSPHATASE 107 U/L (45-117); BILIRUBIN,TOTAL 0.6 mg/dL (0.2-1.0); TOTAL PROTEIN 7.4 g/dL (6.4-8.2)
[2019-04-28] MEDS ORDERED: CALCIUM CHLORIDE 10%, 10ML SYR IVPush ONE (13:00)
[2019-04-28] MEDS ORDERED: DEXTROSE 50%, 50ML SYRINGE IVPush ONE (13:00)
[2019-04-28] MEDS ORDERED: INSULIN REGULAR 100 UNITS/ML, 3ML VIAL IVPush ONE (13:00)
[2019-04-28] MEDS ORDERED: CALCIUM CHLORIDE 10%, 10ML SYR ONE (13:08)
[2019-04-28] MEDS ORDERED: INSULIN SINGLE DOSE, ER SQ-INSULIN ONE (13:08)
[2019-04-28] MEDS ORDERED: LORazepam 2 MG/ML, 1ML ONE (13:22)
--- NOTE | 2019-04-28 13:32 | NUR ---
GIVEN JUICE AND PEANUT BUTTER FOR 55 BLOOD SUGAR FOLLOWED BY MEDS FOR 6.7 POTASSIUM. ADDITIONALLY MEDICATED FOR JERKING MOVEMENT OF EXTREMETIES WITH ATIVAN. ULTRASOUND AT BEDSIDE. PT AND AWARE OF INTENTION TO ADMIT
--- NOTE | 2019-04-28 13:44 | NUR ---
TASK RN: PT GIVEN POTASSIUM COCKTAIL. PT REPORTS THAT SHE IS OKAY. BG HAS NOW GONE UP AFTER OJ, AND PEANUT BUTTER. PT STARTING TO FALL ASLEEP. CHANGE IN LOC BUT MD NOTIFIED TO BEDSIDE EVAL AND IS OKAY WITH PT CONDITION.
--- NOTE | 2019-04-28 13:49 | NUR ---
TASK RN: AWAITING US COMPLETION. PT REPORT CALLED TO JAILENE ALVARES.
[2019-04-28 14:45] VITALS: BP 124/58
[2019-04-28] MEDS ORDERED: SODIUM POLYSTYRENE SULFONATE ORAL SUSP PO ONE (15:00)
[2019-04-28] MEDS ORDERED: FURO40TA6 PO (15:13)
[2019-04-28] MEDS ORDERED: LIDOCAINE-MPF 1%, 5ML ONE ×2 (15:38)
[2019-04-28 16:41] LABS: CULTURE INDICATED? YES; MICROSCOPIC INDICATED
[2019-04-28 16:41] LABS: ALBUMIN 2.5 g/dL (3.4-5.0); ANION GAP 10 mmol/L (5-15); CALCIUM 9.5 mg/dL (8.5-10.1); CHLORIDE 109 mmol/L (98-107)
[2019-04-28] MEDS: SODIUM BICARB 8.4%,50ML SYR. 150 MEQ in DEXTROSE 5% 1,000 ML IV SCH (16:42)
[2019-04-28 16:49] LABS: CHLORIDE,URINE RANDOM 32 mmol/L; POTASSIUM,URINE RANDOM 38 mmol/L; SODIUM,URINE RANDOM 32 mmol/L
[2019-04-28 17:20] LABS: OSMOLALITY,URINE 294 mOsm/kg (500-850)
[2019-04-28] MEDS ORDERED: HEPARIN 5,000 UNITS/ML, 1ML SQ SCH ×2 (17:30→21:00)
[2019-04-28] MEDS ORDERED: ONDANSETRON ODT 4 MG PO PRN (17:30)
[2019-04-28] MEDS ORDERED: LABETALOL 5MG/ML, 20ML IVPush PRN (17:30)
[2019-04-28] MEDS ORDERED: ONDANSETRON 2MG/ML, 2ML IVPush PRN (17:30)
[2019-04-28] MEDS ORDERED: BISACODYL 10 MG SUPP PR PRN (17:30)
[2019-04-28] MEDS ORDERED: ENALAPRILAT 1.25 MG/ML, 1ML IVPush PRN (17:30)
[2019-04-28] MEDS ORDERED: morphine SULFATE 10 MG/ML, 1ML IVPush PRN (17:30)
[2019-04-28 19:00] VITALS: BP 120/70
[2019-04-28 19:17] LABS: HCT (SEDRATE) 28.6 % (34.6-47.8)
[2019-04-28 19:27] LABS: ANION GAP 7 mmol/L (5-15); CALCIUM 9.3 mg/dL (8.5-10.1); CHLORIDE 110 mmol/L (98-107)
[2019-04-28 19:36] LABS: HEMOGLOBIN A1C 5.1 % (4.2-6.3)
[2019-04-28 19:41] LABS: FREE T4 (FREE THYROXINE) 0.97 ng/dL (0.76-1.46); THYROID STIMULATING HORMONE 0.354 mIU/L (0.358-3.740)
[2019-04-29 00:11] VITALS: BP 118/56
[2019-04-29] MEDS: SODIUM BICARB 8.4%,50ML SYR. 150 MEQ in DEXTROSE 5% 1,000 ML IV SCH ×2 (00:39→08:19)
[2019-04-29 05:33] LABS: ALBUMIN 2.3 g/dL (3.4-5.0); ANION GAP 7 mmol/L (5-15); CALCIUM 8.8 mg/dL (8.5-10.1); CHLORIDE 110 mmol/L (98-107)
[2019-04-29 05:41] LABS: % IRON SATURATION 5 % (20-55); ALANINE AMINOTRANSFERASE 13 U/L (12-78); ALKALINE PHOSPHATASE 85 U/L (45-117); BILIRUBIN,TOTAL 0.6 mg/dL (0.2-1.0); CHOL/HDL RATIO 3.2; CHOLESTEROL, TOTAL 127 mg/dL (140-239); CREATINE KINASE, TOTAL 50 U/L (26-192); CREATININE 8.93 mg/dL (0.55-1.02); HDL CHOL % 31 % (28-40); HDL CHOLESTEROL (DIRECT) 40 mg/dL (40-60); IRON LEVEL 14 mcg/dL (50-170); LDL CHOLESTEROL,CALCULATED 65 mg/dL (54-169); LDL/HDL RATIO 1.6 (0.5-3.0); TOTAL IRON BINDING CAPACITY 261 mcg/dL (250-450); TOTAL PROTEIN 6.1 g/dL (6.4-8.2); TRIGLYCERIDES 109 mg/dL (50-200); VLDL CHOLESTEROL 22 mg/dL (0-25)
[2019-04-29 05:53] LABS: MEAN CORPUSCULAR HGB CONC 32.5 g/dL (32.4-35.8); MEAN PLATELET VOLUME 9.1 fL (7.4-10.4); PLATELET COUNT 248 x10^3/uL (130-400); RED BLOOD COUNT 3.63 x10^6/uL (3.82-5.3); RED CELL DISTRIBUTION WIDTH 19.2 % (9.6-15.2)
[2019-04-29 05:56] LABS: MD YES
[2019-04-29 05:58] LABS: LYMPH#(MANUAL) 1.13 x10^3/uL (1-3.4); LYMPHS% (MANUAL) 23 % (22-44); MONOS#(MANUAL) 0.34 x10^3/uL (0.3-2.7); MONOS% (MANUAL) 7 % (2-9); SEG#(MANUAL) 3.43 x10^3/uL (1.8-6.8); SEGS% (MANUAL) 70 % (42-75)
[2019-04-29 05:59] LABS: <PLATELET ESTIMATE> ADEQUATE; <PLT MORPHOLOGY> NORMAL PLT MORPH; ANISOCYTOSIS 1+; POLYCHROMASIA 1+
[2019-04-29 07:00] VITALS: BP 142/62
[2019-04-29] MEDS ORDERED: PANTOPRAZOLE 40 MG IV IVPush SCH (07:30)
[2019-04-29] MEDS: ERGOCALCIFEROL 50,000 UNIT CAPSULE PO SCH (09:46)
[2019-04-29] MEDS: IRON SUCROSE COMPLEX 100MG/5ML IV SCH (09:47)
[2019-04-29 13:20] VITALS: BP 144/78
[2019-04-29] MEDS ORDERED: SODIUM CHLORIDE 0.45% 1,000 ML IV SCH (13:30)
[2019-04-29] MEDS: SODIUM CHLORIDE 0.45% 1,000 ML IV SCH ×2 (14:00→22:16)
[2019-04-29 18:57] VITALS: BP 120/61
[2019-04-30 01:31] VITALS: BP 111/65
[2019-04-30] MEDS: SODIUM CHLORIDE 0.45% 1,000 ML IV SCH ×3 (04:34→17:57)
[2019-04-30 05:30] LABS: BASOPHILS # (AUTO) 0.02 x10^3/uL (0-0.1); BASOPHILS % (AUTO) 1 % (0-1); EOSINOPHILS # (AUTO) 0.14 x10^3/uL (0-0.4); EOSINOPHILS % (AUTO) 3 % (1-7); LYMPHOCYTES # (AUTO) 1.08 x10^3/uL (1-3.4); LYMPHOCYTES % (AUTO) 21 % (22-44); MD NO; MEAN CORPUSCULAR HGB CONC 31.3 g/dL (32.4-35.8); MEAN CORPUSCULAR VOLUME 79.7 fL (80-100); MEAN PLATELET VOLUME 9.2 fL (7.4-10.4); MONOCYTES % (AUTO) 11 % (2-9); NEUTROPHILS # (AUTO) 3.37 x10^3/uL (1.8-6.8); NEUTROPHILS % (AUTO) 65 % (42-75); PLATELET COUNT 245 x10^3/uL (130-400); RED BLOOD COUNT 3.61 x10^6/uL (3.82-5.3); RED CELL DISTRIBUTION WIDTH 19.3 % (9.6-15.2)
[2019-04-30] MEDS: PANTOPROZOLE 40MG TABLET PO SCH (05:37)
[2019-04-30 05:43] LABS: CALCIUM 8.2 mg/dL (8.5-10.1); CHLORIDE 106 mmol/L (98-107)
[2019-04-30 05:49] LABS: ALANINE AMINOTRANSFERASE 11 U/L (12-78); ALBUMIN 2.1 g/dL (3.4-5.0); ALKALINE PHOSPHATASE 76 U/L (45-117); ANION GAP 7 mmol/L (5-15); BILIRUBIN,TOTAL 0.9 mg/dL (0.2-1.0); TOTAL PROTEIN 5.9 g/dL (6.4-8.2)
[2019-04-30 08:29] VITALS: BP 128/69
[2019-04-30] MEDS: IRON SUCROSE COMPLEX 100MG/5ML IV SCH (08:47)
[2019-04-30 13:15] VITALS: BP 150/80
[2019-04-30 18:55] VITALS: BP 157/68
[2019-05-01 00:20] VITALS: BP 121/56
[2019-05-01] MEDS: SODIUM CHLORIDE 0.45% 1,000 ML IV SCH ×3 (02:31→23:23)
[2019-05-01] MEDS: PANTOPROZOLE 40MG TABLET PO SCH (05:31)
[2019-05-01 05:43] LABS: BASOPHILS # (AUTO) 0.02 x10^3/uL (0-0.1); BASOPHILS % (AUTO) 0 % (0-1); EOSINOPHILS # (AUTO) 0.41 x10^3/uL (0-0.4); EOSINOPHILS % (AUTO) 7 % (1-7); LYMPHOCYTES # (AUTO) 1.23 x10^3/uL (1-3.4); LYMPHOCYTES % (AUTO) 21 % (22-44); MD NO; MEAN CORPUSCULAR HEMOGLOBIN 25.7 pg (27.0-34.8); MEAN CORPUSCULAR HGB CONC 31.6 g/dL (32.4-35.8); MEAN CORPUSCULAR VOLUME 81.4 fL (80-100); MEAN PLATELET VOLUME 8.5 fL (7.4-10.4); MONOCYTES # (AUTO) 0.57 x10^3/uL (0.2-0.8); MONOCYTES % (AUTO) 10 % (2-9); NEUTROPHILS # (AUTO) 3.54 x10^3/uL (1.8-6.8); NEUTROPHILS % (AUTO) 61 % (42-75); PLATELET COUNT 295 x10^3/uL (130-400); RED BLOOD COUNT 3.98 x10^6/uL (3.82-5.3); RED CELL DISTRIBUTION WIDTH 18.8 % (9.6-15.2)
[2019-05-01 05:54] LABS: ALBUMIN 2.3 g/dL (3.4-5.0); ANION GAP 6 mmol/L (5-15); CALCIUM 8.9 mg/dL (8.5-10.1); CHLORIDE 109 mmol/L (98-107)
[2019-05-01] MEDS ORDERED: POTASSIUM CHLORIDE 20 MEQ TAB.ER.PRT PO SCH (09:30)
[2019-05-01] MEDS ORDERED: MAGNESIUM SULFATE PMX 2GM/50ML 50 ML IV ONE (09:30)
[2019-05-01 12:32] LABS: CULTURE INDICATED? YES; MICROSCOPIC INDICATED
[2019-05-01 13:05] VITALS: BP 151/74
[2019-05-01] MEDS: IRON SUCROSE COMPLEX 100MG/5ML IV SCH (13:05)
[2019-05-01] MEDS ORDERED: POTASSIUM CHLORIDE 20 MEQ PACKET PO ONE (17:00)
[2019-05-01 20:15] VITALS: BP 166/53
[2019-05-01] MEDS: ACETAMINOPHEN 325 MG TABLET PO PRN (23:23)
[2019-05-02 03:17] VITALS: BP 178/79
[2019-05-02 03:49] LABS: BASOPHILS # (AUTO) 0.02 x10^3/uL (0-0.1); BASOPHILS % (AUTO) 0 % (0-1); EOSINOPHILS # (AUTO) 0.35 x10^3/uL (0-0.4); EOSINOPHILS % (AUTO) 6 % (1-7); LYMPHOCYTES # (AUTO) 1.05 x10^3/uL (1-3.4); LYMPHOCYTES % (AUTO) 16 % (22-44); MD NO; MEAN CORPUSCULAR HEMOGLOBIN 25.5 pg (27.0-34.8); MEAN CORPUSCULAR HGB CONC 31.3 g/dL (32.4-35.8); MEAN CORPUSCULAR VOLUME 81.5 fL (80-100); MEAN PLATELET VOLUME 8.6 fL (7.4-10.4); MONOCYTES # (AUTO) 0.62 x10^3/uL (0.2-0.8); MONOCYTES % (AUTO) 10 % (2-9); NEUTROPHILS # (AUTO) 4.41 x10^3/uL (1.8-6.8); NEUTROPHILS % (AUTO) 68 % (42-75); PLATELET COUNT 283 x10^3/uL (130-400); RED BLOOD COUNT 3.81 x10^6/uL (3.82-5.3); RED CELL DISTRIBUTION WIDTH 18.4 % (9.6-15.2)
[2019-05-02 03:52] LABS: ANION GAP 5 mmol/L (5-15); CALCIUM 8.8 mg/dL (8.5-10.1); CHLORIDE 110 mmol/L (98-107)
[2019-05-02 03:53] LABS: CREATININE 1.78 mg/dL (0.55-1.02)
[2019-05-02] MEDS: PANTOPROZOLE 40MG TABLET PO SCH (05:34)
[2019-05-02] MEDS: SODIUM CHLORIDE 0.45% 1,000 ML IV SCH ×3 (05:34→21:42)
[2019-05-02] MEDS: ACETAMINOPHEN 325 MG TABLET PO PRN (05:53)
[2019-05-02 07:22] VITALS: BP 167/75
[2019-05-02 08:11] VITALS: BP 186/81
[2019-05-02] MEDS: IRON SUCROSE COMPLEX 100MG/5ML IV SCH (08:12)
[2019-05-02] MEDS ORDERED: LORazepam 2 MG/ML, 1ML ONE (08:46)
[2019-05-02] MEDS: LORazepam 2 MG/ML, 1ML IVPush PRN (08:48)
[2019-05-02] MEDS ORDERED: LORazepam 2 MG/ML, 1ML IVPush ONE (09:00)
[2019-05-02] MEDS ORDERED: LEVETIRACETAM 500 MG in SODIUM CHLORIDE 0.9% 100 ML IV SCH (09:30)
[2019-05-02] MEDS: METHADONE 10 MG TABLET PO SCH ×3 (10:19→20:30)
[2019-05-02] MEDS ORDERED: CYCLOBENZAPRINE 10 MG TABLET PO SCH (11:00)
[2019-05-02] MEDS ORDERED: OMNIPAQUE 350 MG/ML, 75ML BOTTLE ONE (12:42)
[2019-05-02] MEDS: FLUOXETINE HCL 20 MG CAPSULE PO SCH (13:07)
[2019-05-02] MEDS ORDERED: LEVO175T2 PO (13:14)
[2019-05-02] MEDS ORDERED: FLUO40CA9 PO (13:14)
[2019-05-02 13:15] VITALS: BP 133/76
[2019-05-02 19:55] VITALS: BP 138/71
[2019-05-03] MEDS: METHADONE 10 MG TABLET PO SCH ×5 (01:30→20:12)
[2019-05-03 02:44] VITALS: BP 153/81
[2019-05-03] MEDS: PANTOPROZOLE 40MG TABLET PO SCH (05:13)
[2019-05-03 05:18] LABS: BASOPHILS # (AUTO) 0.01 x10^3/uL (0-0.1); BASOPHILS % (AUTO) 0 % (0-1); EOSINOPHILS # (AUTO) 0.38 x10^3/uL (0-0.4); EOSINOPHILS % (AUTO) 5 % (1-7); LYMPHOCYTES # (AUTO) 1.11 x10^3/uL (1-3.4); LYMPHOCYTES % (AUTO) 15 % (22-44); MD NO; MEAN CORPUSCULAR HEMOGLOBIN 25.6 pg (27.0-34.8); MEAN CORPUSCULAR HGB CONC 31.8 g/dL (32.4-35.8); MEAN CORPUSCULAR VOLUME 80.7 fL (80-100); MEAN PLATELET VOLUME 8.5 fL (7.4-10.4); MONOCYTES % (AUTO) 8 % (2-9); NEUTROPHILS # (AUTO) 5.58 x10^3/uL (1.8-6.8); NEUTROPHILS % (AUTO) 73 % (42-75); PLATELET COUNT 346 x10^3/uL (130-400); RED CELL DISTRIBUTION WIDTH 18.7 % (9.6-15.2)
[2019-05-03 05:29] LABS: ALBUMIN 2.4 g/dL (3.4-5.0); ANION GAP 7 mmol/L (5-15); CALCIUM 8.7 mg/dL (8.5-10.1); CHLORIDE 110 mmol/L (98-107)
[2019-05-03 05:32] LABS: ALANINE AMINOTRANSFERASE 16 U/L (12-78); ALKALINE PHOSPHATASE 78 U/L (45-117); BILIRUBIN,TOTAL 0.5 mg/dL (0.2-1.0); CREATININE 1.43 mg/dL (0.55-1.02); TOTAL PROTEIN 6.9 g/dL (6.4-8.2)
[2019-05-03 07:04] VITALS: BP 143/77
[2019-05-03] MEDS: SODIUM CHLORIDE 0.45% 1,000 ML IV SCH (08:00)
[2019-05-03] MEDS ORDERED: MAGNESIUM SULFATE PMX 4GM/100M 100 ML IV ONE (09:00)
[2019-05-03] MEDS: FLUOXETINE HCL 20 MG CAPSULE PO SCH (10:17)
[2019-05-03] MEDS: IRON SUCROSE COMPLEX 100MG/5ML IV SCH (10:18)
[2019-05-03 12:52] VITALS: BP 110/60
[2019-05-03] MEDS ORDERED: POTASSIUM CHLORIDE 20 MEQ in SODIUM CHLORIDE 0.45% 1,000 ML IV SCH (14:00)
[2019-05-03] MEDS: POTASSIUM CHLORIDE 20 MEQ in SODIUM CHLORIDE 0.45% 1,000 ML IV SCH (16:49)
[2019-05-03 19:39] VITALS: BP 139/68
[2019-05-03] MEDS: LORazepam 2 MG/ML, 1ML IVPush PRN (22:58)
[2019-05-04] MEDS: METHADONE 10 MG TABLET PO SCH ×5 (00:25→23:22)
[2019-05-04] MEDS: POTASSIUM CHLORIDE 20 MEQ in SODIUM CHLORIDE 0.45% 1,000 ML IV SCH ×2 (02:39→14:49)
[2019-05-04 03:00] VITALS: BP 137/75
[2019-05-04] MEDS: PANTOPROZOLE 40MG TABLET PO SCH (05:28)
[2019-05-04 05:37] LABS: BASOPHILS % (AUTO) 0 % (0-1); EOSINOPHILS # (AUTO) 0.41 x10^3/uL (0-0.4); EOSINOPHILS % (AUTO) 7 % (1-7); LYMPHOCYTES # (AUTO) 0.94 x10^3/uL (1-3.4); LYMPHOCYTES % (AUTO) 15 % (22-44); MD NO; MEAN CORPUSCULAR HEMOGLOBIN 25.7 pg (27.0-34.8); MEAN CORPUSCULAR HGB CONC 31.7 g/dL (32.4-35.8); MEAN CORPUSCULAR VOLUME 81.1 fL (80-100); MEAN PLATELET VOLUME 8.6 fL (7.4-10.4); MONOCYTES # (AUTO) 0.65 x10^3/uL (0.2-0.8); MONOCYTES % (AUTO) 10 % (2-9); NEUTROPHILS # (AUTO) 4.34 x10^3/uL (1.8-6.8); NEUTROPHILS % (AUTO) 68 % (42-75); PLATELET COUNT 331 x10^3/uL (130-400); RED BLOOD COUNT 4.14 x10^6/uL (3.82-5.3); RED CELL DISTRIBUTION WIDTH 18.7 % (9.6-15.2)
[2019-05-04 05:47] LABS: ALBUMIN 2.4 g/dL (3.4-5.0); ANION GAP 7 mmol/L (5-15); CALCIUM 8.4 mg/dL (8.5-10.1); CHLORIDE 109 mmol/L (98-107); CREATININE 1.26 mg/dL (0.55-1.02)
[2019-05-04 05:54] LABS: ALANINE AMINOTRANSFERASE 16 U/L (12-78); ALKALINE PHOSPHATASE 79 U/L (45-117); BILIRUBIN,TOTAL 0.7 mg/dL (0.2-1.0); TOTAL PROTEIN 6.6 g/dL (6.4-8.2)
[2019-05-04 07:47] VITALS: BP 145/78
[2019-05-04] MEDS: FLUOXETINE HCL 20 MG CAPSULE PO SCH (10:20)
[2019-05-04 13:23] VITALS: BP 140/76
[2019-05-04 19:00] VITALS: BP 153/94
[2019-05-04] MEDS: DOCUSATE 100 MG CAPSULE PO PRN (21:37)
[2019-05-05 00:56] VITALS: BP 131/73
[2019-05-05] MEDS: POTASSIUM CHLORIDE 20 MEQ in SODIUM CHLORIDE 0.45% 1,000 ML IV SCH ×3 (01:32→23:02)
[2019-05-05 03:52] LABS: ANION GAP 7 mmol/L (5-15); CALCIUM 8.8 mg/dL (8.5-10.1); CHLORIDE 111 mmol/L (98-107)
[2019-05-05 03:55] LABS: CREATININE 1.32 mg/dL (0.55-1.02)
[2019-05-05 04:02] LABS: BASOPHILS # (AUTO) 0.03 x10^3/uL (0-0.1); BASOPHILS % (AUTO) 1 % (0-1); EOSINOPHILS # (AUTO) 0.35 x10^3/uL (0-0.4); EOSINOPHILS % (AUTO) 6 % (1-7); LYMPHOCYTES # (AUTO) 1.07 x10^3/uL (1-3.4); LYMPHOCYTES % (AUTO) 17 % (22-44); MD NO; MEAN CORPUSCULAR HEMOGLOBIN 25.4 pg (27.0-34.8); MEAN CORPUSCULAR HGB CONC 30.9 g/dL (32.4-35.8); MEAN CORPUSCULAR VOLUME 82.3 fL (80-100); MEAN PLATELET VOLUME 8.8 fL (7.4-10.4); MONOCYTES # (AUTO) 0.76 x10^3/uL (0.2-0.8); MONOCYTES % (AUTO) 12 % (2-9); NEUTROPHILS # (AUTO) 4.18 x10^3/uL (1.8-6.8); NEUTROPHILS % (AUTO) 65 % (42-75); PLATELET COUNT 319 x10^3/uL (130-400); RED BLOOD COUNT 4.23 x10^6/uL (3.82-5.3); RED CELL DISTRIBUTION WIDTH 18.8 % (9.6-15.2)
[2019-05-05] MEDS: METHADONE 10 MG TABLET PO SCH ×4 (04:43→21:45)
[2019-05-05] MEDS: PANTOPROZOLE 40MG TABLET PO SCH (07:09)
[2019-05-05 07:57] VITALS: BP 120/66
[2019-05-05] MEDS: FLUOXETINE HCL 20 MG CAPSULE PO SCH (08:30)
[2019-05-05 12:28] VITALS: BP 136/86
[2019-05-05] MEDS: DOCUSATE 100 MG CAPSULE PO PRN (15:57)
[2019-05-05 20:02] VITALS: BP 146/67
[2019-05-06] MEDS: METHADONE 10 MG TABLET PO SCH ×5 (02:00→21:55)
[2019-05-06 02:40] VITALS: BP 134/73
[2019-05-06 05:26] LABS: BASOPHILS # (AUTO) 0.02 x10^3/uL (0-0.1); BASOPHILS % (AUTO) 0 % (0-1); EOSINOPHILS # (AUTO) 0.26 x10^3/uL (0-0.4); EOSINOPHILS % (AUTO) 4 % (1-7); LYMPHOCYTES # (AUTO) 1.07 x10^3/uL (1-3.4); LYMPHOCYTES % (AUTO) 18 % (22-44); MD NO; MEAN CORPUSCULAR HEMOGLOBIN 25.2 pg (27.0-34.8); MEAN CORPUSCULAR VOLUME 81.5 fL (80-100); MEAN PLATELET VOLUME 8.4 fL (7.4-10.4); MONOCYTES # (AUTO) 0.67 x10^3/uL (0.2-0.8); MONOCYTES % (AUTO) 11 % (2-9); NEUTROPHILS # (AUTO) 3.91 x10^3/uL (1.8-6.8); NEUTROPHILS % (AUTO) 66 % (42-75); PLATELET COUNT 318 x10^3/uL (130-400); RED BLOOD COUNT 3.81 x10^6/uL (3.82-5.3); RED CELL DISTRIBUTION WIDTH 19.1 % (9.6-15.2)
[2019-05-06 05:32] LABS: ANION GAP 4 mmol/L (5-15); CALCIUM 8.7 mg/dL (8.5-10.1); CHLORIDE 111 mmol/L (98-107); CREATININE 1.34 mg/dL (0.55-1.02)
[2019-05-06] MEDS: PANTOPROZOLE 40MG TABLET PO SCH (05:56)
[2019-05-06 07:48] VITALS: BP 130/79
[2019-05-06] MEDS: FLUOXETINE HCL 20 MG CAPSULE PO SCH (09:42)
[2019-05-06] MEDS: POTASSIUM CHLORIDE 20 MEQ in SODIUM CHLORIDE 0.45% 1,000 ML IV SCH ×2 (09:42→21:55)
[2019-05-06] MEDS: ERGOCALCIFEROL 50,000 UNIT CAPSULE PO SCH (09:42)
[2019-05-06 12:53] VITALS: BP 149/73
[2019-05-06 20:03] VITALS: BP 146/77
[2019-05-06] MEDS: DOCUSATE 100 MG CAPSULE PO PRN (20:56)
[2019-05-07 00:42] VITALS: BP 146/79
[2019-05-07] MEDS: METHADONE 10 MG TABLET PO SCH ×2 (03:14→07:38)
[2019-05-07 04:44] LABS: BASOPHILS # (AUTO) 0.02 x10^3/uL (0-0.1); BASOPHILS % (AUTO) 0 % (0-1); EOSINOPHILS # (AUTO) 0.24 x10^3/uL (0-0.4); EOSINOPHILS % (AUTO) 4 % (1-7); LYMPHOCYTES # (AUTO) 1.01 x10^3/uL (1-3.4); LYMPHOCYTES % (AUTO) 18 % (22-44); MD NO; MEAN CORPUSCULAR HEMOGLOBIN 25.6 pg (27.0-34.8); MEAN CORPUSCULAR HGB CONC 31.3 g/dL (32.4-35.8); MEAN CORPUSCULAR VOLUME 81.6 fL (80-100); MEAN PLATELET VOLUME 8.4 fL (7.4-10.4); MONOCYTES # (AUTO) 0.65 x10^3/uL (0.2-0.8); MONOCYTES % (AUTO) 11 % (2-9); NEUTROPHILS # (AUTO) 3.86 x10^3/uL (1.8-6.8); NEUTROPHILS % (AUTO) 67 % (42-75); PLATELET COUNT 295 x10^3/uL (130-400); RED BLOOD COUNT 3.83 x10^6/uL (3.82-5.3); RED CELL DISTRIBUTION WIDTH 19.2 % (9.6-15.2)
[2019-05-07 04:54] LABS: ANION GAP 4 mmol/L (5-15); CALCIUM 8.8 mg/dL (8.5-10.1); CHLORIDE 109 mmol/L (98-107); CREATININE 1.28 mg/dL (0.55-1.02)
[2019-05-07] MEDS: PANTOPROZOLE 40MG TABLET PO SCH (05:50)
[2019-05-07 06:46] VITALS: BP 136/78
[2019-05-07] MEDS: FLUOXETINE HCL 20 MG CAPSULE PO SCH (07:38)
[2019-05-07] MEDS: POTASSIUM CHLORIDE 20 MEQ in SODIUM CHLORIDE 0.45% 1,000 ML IV SCH (08:31)
[2019-05-07] MEDS ORDERED: ERGO500017 PO (10:31)
== END 2019-05-07 12:37 | disposition hospice, home (50) | DRG 91 ==
LOC: ED 12:41 → EDIP 12:44 → 4WST 14:29
PROVIDERS: ADMIT Hospitalist; ATTEND Hospitalist
PROC: 0T9B70Z Drainage of Bladder with Drainage Device, Via Natural or Artificial Opening (ICD-10-PCS; principal; 2019-05-01)
DX: G92 Toxic encephalopathy (principal); N17.0 Acute kidney failure with tubular necrosis; F11.23 Opioid dependence with withdrawal; N13.6 Pyonephrosis; N18.4 Chronic kidney disease, stage 4 (severe); C67.9 Malignant neoplasm of bladder, unspecified; G25.3 Myoclonus; E78.00 Pure hypercholesterolemia, unspecified; D63.1 Anemia in chronic kidney disease; I12.9 Hypertensive chronic kidney disease with stage 1 through stage 4 chronic kidney disease, or unspecified chronic kidney disease; G89.29 Other chronic pain; K74.60 Unspecified cirrhosis of liver; F17.210 Nicotine dependence, cigarettes, uncomplicated; E87.5 Hyperkalemia; E83.42 Hypomagnesemia; E87.6 Hypokalemia; E78.5 Hyperlipidemia, unspecified; M54.9 Dorsalgia, unspecified; N25.0 Renal osteodystrophy; R31.0 Gross hematuria; F19.90 Other psychoactive substance use, unspecified, uncomplicated; Z98.1 Arthrodesis status; Z90.710 Acquired absence of both cervix and uterus; Z85.51 Personal history of malignant neoplasm of bladder; Z90.49 Acquired absence of other specified parts of digestive tract; Z88.2 Allergy status to sulfonamides; Z88.8 Allergy status to other drugs, medicaments and biological substances; Z98.51 Tubal ligation status
CPT/HCPCS: 36415; 70450; 70470; 71045; 76770; 76775; 80048; 80053; 80061; 80069; 81001; 82140; 82306; 82330; 82436; 82550; 82728; 82962; 83036; 83540; 83550; 83690; 83735; 83935; 83970; 84100; 84133; 84300; 84439; 84443; 84550; 85014; 85018; 85025; 85651; 87040; 87077; 87086; 87186; 87205; 93005; 95819; 96374; 96375; G0378; J1644; J1756; J1815; J3480; J7070; Q9967; C9113; J2060; J2270; J3475